=== PATIENT | male | born 1995 | race Caucasian/White ===

== ENCOUNTER 2020-05-07 22:52 | Emergency (ER) | payer OTHER, SELFPAY ==
[2020-05-07 23:01] VITALS: BP 122/92; PULSE 65; RESP 14; TEMP 36.6; O2SAT 97
--- NOTE | 2020-05-07 23:35 | ED.WOUNDLAC ---
HPI - Wound/Laceration General Chief Complaint: Wound/Laceration Stated Complaint: laceration left thumb Time Seen by Provider: 05/07/20 23:22 Source: patient Mode of arrival: ambulatory Limitations: no limitations History of Present Illness HPI narrative: Patient is a 24-year-old male who presents with a laceration to the left thumb. Patient reports cutting with clean kitchen knife prior to arrival. Bleeding controlled at this time. Patient denies numbness or tingling, full flexion extension noted. Patient reports last tetanus shot approximately 1 year ago. He denies other injuries or complaints. Patient took no pain medicine prior to arrival, denies pain at this time. Related Data Allergies Allergy/AdvReac Type Severity Reaction Status Date / Time No Known Allergies Allergy Mild Verified 04/11/13 11:19 Review of Systems Review of Systems: Narrative: CONSTITUTIONAL: Denies fever, chills, or sweats. EYES: Denies visual changes, redness, or discharge. ENT: Denies rhinorrhea, congestion, sore throat, or otalgia. CARDIOVASCULAR: Denies chest pain, palpitations, or edema. RESPIRATORY: Denies cough or dyspnea. GASTROINTESTINAL: Denies abdominal pain, nausea, vomiting, or diarrhea. GENITOURINARY: Denies dysuria or hematuria. SKIN: Laceration to left thumb. MUSCULOSKELETAL: Denies back pain, joint pain, or myalgia. NEUROLOGIC: Denies headache, numbness, dizziness, or weakness. PSYCHIATRIC: Denies anxiety or depression. [facility] Past Medical History Medical History (Updated 05/07/20 @ 23:42 by MARYSE Greenberg) No significant past medical history Surgical History Surgical History (Updated 05/07/20 @ 23:37 by MARYSE Greenberg) No significant past surgical history Social History Social History (Updated 05/07/20 @ 23:37 by MARYSE Greenberg) Smoking status: Never smoker Alcohol intake: current Alcohol use details: occasional Substance use: never Living arrangements: with family Occupation/Education: occupation Exam Narrative: Exam Narrative: GENERAL: Well-appearing, well-nourished, and in no acute distress. HEAD: Normocephalic, atraumatic. EYES: No redness or drainage. ENT: Mucous membranes pink and moist. Nares clear. No rhinorrhea. TMs normal bilaterally. Throat normal. Uvula midline. CHEST: No respiratory distress. HEART: Regular rate and rhythm. No murmur appreciated. Normal peripheral pulses. SKIN: U-shaped flap laceration to pad of the left thumb, distal sensation intact, full flexion and extension noted. NEURO: No focal deficits. Alert and oriented x3. Gait steady. PSYCH: Normal affect. No signs of depression or anxiety. Course Vital Signs Vital signs: Vital Signs Temperature 36.6 C 05/07/20 23:01 Pulse Rate 65 05/07/20 23:01 Respiratory Rate 14 05/07/20 23:01 Blood Pressure 122/92 H 05/07/20 23:01 Pulse Oximetry 97 05/07/20 23:01 Temperature 36.6 C 05/07/20 23:01 Pulse Rate 65 05/07/20 23:01 Respiratory Rate 14 05/07/20 23:01 Blood Pressure 122/92 H 05/07/20 23:01 Pulse Oximetry 97 05/07/20 23:01 Reviewed MDM - Wound/Laceration MDM Narrative Medical decision making narrative: Patient has approximate 1.5 cm laceration/avulsion to pad of left thumb, Dermabond used to close wound, Steri-Strips applied. Patient had splint placed. Patient aware of care of thumb. Patient is stable for discharge home with outpatient follow-up as needed. Differential Diagnosis Differential diagnosis: Likely laceration, abrasion and avulsion of skin Critical Care Time Critical Care Time Critical Care Time: No Discharge Plan Discharge Clinical Impression: Laceration, Avulsion of skin Patient Disposition: Home, Self-Care Condition: Stable Instructions: Antibiotic Form, Skin Avulsion (ED), Skin Adhesive Care (ED) Additional Instructions: Keep splint in place until Dermabond and Steri-Strips are none. Follow-up with your PCP as neede
[2020-05-08 00:29] VITALS: BP 121/79; PULSE 68; RESP 16; TEMP 36.7; O2SAT 99
== END 2020-05-08 00:05 | disposition home or self-care (01) ==
PROVIDERS: Emergency Provider Nurse Practitioner
DX: S61.012A Laceration without foreign body of left thumb without damage to nail, initial encounter (principal); W26.0XXA Contact with knife, initial encounter
CPT/HCPCS: 12001; 99282

== ENCOUNTER 2022-12-27 11:58 | Emergency (ER) | payer BC, SELFPAY ==
[2022-12-27 12:06] VITALS: BP 139/89; PULSE 88; RESP 20; TEMP 37.1; O2SAT 98
--- NOTE | 2022-12-27 12:22 | ED.NAVMDI ---
HPI - Nausea/Vomiting/Diarrhea General Chief complaint: Nausea/Vomiting/Diarrhea Stated complaint: Diarrhea History of Present Illness HPI Narrative: PATIENT PRESENTS WITH 2 WEEK HISTORY OF DIARRHEA. PATIENT STATES HE TRAVELED OUT OF THE COUNTRY TO [place] AND HAS HAD DIARRHEA SINCE. PATIENT REPORTED THAT HE BECAME ILL IN [place] AND THAT HAS HAD CHRONIC DIARRHEA SINCE HIS RETURN. PATIENT STATES HE DID HAVE A COURSE OF CIPRO GIVEN TO HIM BY A EMERGENCY ROOM PROVIDER AND DID HELP RETURN HIS STOOLS TO NORMAL BUT SINCE COMPLETING THE COURSE OF ANTIBIOTICS HIS STOOLS HAVE RETURNED TO CLEAR LIQUID. NO FEVER NO ABDOMINAL PAIN DENIES ANY BLOOD OR MUCUS IN HIS STOOLS. PATIENT STATES HE DOES NOT HAVE A PRIMARY CARE PROVIDER AND JUST RECEIVED INSURANCE COVERAGE THROUGH HIS WORK. Related Data Allergies Allergy/AdvReac Type Severity Reaction Status Date / Time No Known Allergies Allergy Verified 12/27/22 12:11 Review of Systems Review of Systems: CONSTITUTIONAL: DENIES CHILLS, OR SWEATS. REPORTS FEVER AND GENERALIZED BODY ACHES EYES: DENIES VISUAL CHANGES, REDNESS, OR DISCHARGE. ENT: DENIES OTALGIA. REPORTS NASAL CONGESTION RUNNY NOSE AND SORE THROAT CARDIOVASCULAR: DENIES CHEST PAIN, PALPITATIONS, OR EDEMA. RESPIRATORY: DENIES DYSPNEA. REPORTS OCCASIONAL COUGH GASTROINTESTINAL: DENIES ABDOMINAL PAIN, NAUSEA, VOMITING, OR DIARRHEA. GENITOURINARY: DENIES DYSURIA OR HEMATURIA. SKIN: DENIES RASH OR ITCHING. MUSCULOSKELETAL: DENIES BACK PAIN, JOINT PAIN, OR MYALGIA. REPORTS GENERALIZED BODY ACHES NEUROLOGIC: DENIES HEADACHE, NUMBNESS, OR WEAKNESS. PSYCHIATRIC: DENIES ANXIETY OR DEPRESSION. PMFSH Comments AT TIME OF SIGNATURE, AGREE WITH NURSING PAST MEDICAL, SURGICAL, SOCIAL AND FAMILY HISTORY. THERE IS NO RELEVANT FAMILY HISTORY PERTINENT TO THE PRESENTING COMPLAINT Exam Narrative: GENERAL: WELL-APPEARING, WELL-NOURISHED, AND IN NO ACUTE DISTRESS. HEAD: NORMOCEPHALIC, ATRAUMATIC. EYES: PERRLA AND EOMI. ENT: NARES CLEAR, NO RHINORRHEA OR EPISTAXIS. MUCOUS MEMBRANES MOIST. NECK: SUPPLE. CHEST: CLEAR TO AUSCULTATION. NO RESPIRATORY DISTRESS. HEART: REGULAR RATE AND RHYTHM. NO MURMUR HEARD. NORMAL PERIPHERAL PULSES. ABDOMEN: SOFT, NONTENDER, NONDISTENDED, NORMAL ACTIVE BOWEL SOUNDS. EXTREMITIES: NORMAL RANGE OF MOTION. NO EDEMA. SKIN: WARM, DRY, NO RASH. NEURO: NO FOCAL DEFICITS. ALERT AND ORIENTED X3. ISABEL COMA SCALE EYE OPENING: SPONTANEOUS 4 ISABEL COMA SCALE MOTOR: OBEYS COMMANDS 6 ISABEL COMA SCALE VERBAL: ORIENTED 5 ISABEL COMA SCALE TOTAL 15 Course Course Level of Care: Express Care Visit Vital Signs Vital signs: Vital Signs Temperature 37.1 C 12/27/22 12:06 Pulse Rate 88 12/27/22 12:06 Respiratory Rate 20 12/27/22 12:06 Blood Pressure 139/89 12/27/22 12:06 Pulse Oximetry 98 12/27/22 12:06 Oxygen Delivery Room Air 12/27/22 12:06 Temperature 37.1 C 12/27/22 12:06 Pulse Rate 88 12/27/22 12:06 Respiratory Rate 20 12/27/22 12:06 Blood Pressure 139/89 12/27/22 12:06 Pulse Oximetry 98 12/27/22 12:06 Oxygen Delivery Room Air 12/27/22 12:06 SPOKE WITH THE DISTANCE LEARNING TECHNICIAN AT DR SARAH VELEZ OFFICE AND WAS INSTRUCTED TO SEND PATIENT RIGHT OVER WITH COPY OF INSURANCE AND PHOTO ID AND WAS SET UP WITH AN APPOINTMENT TODAY WITH PROVIDER FOR FURTHER EVALUATION TREATMENT OF TRAVELER'S DIARRHEA. PATIENT AGREEABLE WITH PLAN OF CARE. MDM - Nausea/Vomiting/Diarrhea Differential Diagnosis Differential diagnosis: Likely traveler's diarrhea, food poisoning, gastroenteritis, clostridium difficile infection, drug-induced nausea and vomiting, dehydration and other Discharge Plan Discharge Clinical Impression: Traveler's diarrhea Patient Disposition: Home, Self-Care Condition: Stable Instructions: Antibiotic Form, Gastroenteritis (DC), Chronic Diarrhea (ED) Additional Instructions: Go directly TO DR SARAH VELEZ OFFICE TODAY FOR APPOINTMENT [address] [place] [address] [address] [facility]
== END 2022-12-27 12:23 | disposition home or self-care (01) ==
PROVIDERS: Emergency Provider Nurse Practitioner Family
DX: A09 Infectious gastroenteritis and colitis, unspecified (principal)
CPT/HCPCS: 99211; G0463

== ENCOUNTER 2022-12-27 15:48 | Outpatient (CLI) | payer BC, SELFPAY ==
--- NOTE | ~2022-12-27 | XR_ITS ---
XR abdomen/kub 1V 12/27/2022 16:09 INDICATION: Diarrhea for 2 weeks TECHNIQUE: KUB COMPARISON: None FINDINGS: Bowel gas pattern is normal. There is no evidence of free air, mass, organomegaly, ascites or obstruction. No abnormal calculi are seen. The bones appear intact. Mild levoscoliosis. IMPRESSION: 1: No acute abdominal abnormality identified. Reviewed, dictated and finalized at location []
== END 2022-12-27 15:49 | disposition home or self-care (01) ==
LOC: ANHIMG 15:51
PROVIDERS: PCP Emergency Medicine; Visit Provider Emergency Medicine
DX: R19.7 Diarrhea, unspecified (principal)
CPT/HCPCS: 74018